=== PATIENT | male | born 1980 | race Caucasian/White ===

== ENCOUNTER → 2016-09-27 | Outpatient (CLI) | payer BC | LOC: KOH-I 07:59 | DX: M84.371A Stress fracture, right ankle, initial encounter for fracture (principal); S82.821A Torus fracture of lower end of right fibula, initial encounter for closed fracture; S82.51XA Displaced fracture of medial malleolus of right tibia, initial encounter for closed fracture | CPT/HCPCS: 73700 ==

== ENCOUNTER → 2021-09-02 | Outpatient (CLI) | payer BC | LOC: ECHO 12:27 → NM 14:30 | DX: R07.2 Precordial pain (principal); I35.1 Nonrheumatic aortic (valve) insufficiency | CPT/HCPCS: ECHO; 71046; 93306 ==

== ENCOUNTER 2021-11-12 20:35 | Inpatient (IN) | payer SELFPAY ==
[2021-11-12 21:26] LABS: HEMOGLOBIN 17.8 gm/dl (14.0-17.5); RED BLOOD COUNT 6.07 M/UL (4.20-5.50); WHITE BLOOD COUNT 11.4 K/UL (4.5-11.0)
[2021-11-12 21:51] LABS: BUN/CREATININE RATIO 20 (0-10)
[2021-11-13 05:02] LABS: BUN/CREATININE RATIO 18 (0-10)
[2021-11-13 13:09] LABS: HEMOGLOBIN 14.5 gm/dl (14.0-17.5); RED BLOOD COUNT 5.09 M/UL (4.20-5.50); WHITE BLOOD COUNT 6.1 K/UL (4.5-11.0)
--- NOTE | 2021-11-14 07:10 | NUR ---
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 SHE SAID IT WOULD BE A FAVER TO HER, IF I WOULD. SO I AGRED AND WENT TO ER TO DISCHARGE PATIENT. PATIENT HAD BEEN DISCHARGED BY DR. ATKINS AND WAS WANTING TO GO HOME. HE STATED HE HAD BEEN IN THE ER SINCE 1999 THE NIGHT BEFORE. I DISCOVERED THAT NO ONE IN THE ER KNEW HOW TO DISCHARGE A PATIENT FROM THE ER, EXCEPT TO DO A FULL ADMISSION AND DISCHARGE ON THE PATIENT. MR BIGGS REFUSED THE FULL ADMISSION PROCESS AND JUST WANTED TO GO HOME. HE ALSO STATED HE DIDN'T NEED TO SIGN OUT AMA, BECAUSE THE DOCTOR HAD SIGNED OFF ON HIM AND HE WAS DISCHARGED. I PUT TOGETHER SOME EDUCATION, AND PRINTED THE DISCHARGE PACKET IT WAS, HAD MR BIGGS SIGN HIS PART AND PUT A COPY IN THE CHART AND GAVE MR. BIGGS HIS COPY. BEV WAS INFORMED, WELL THE ER NURSE TENDING THE PATIENT. BEV SAID TO CHART MR BIGGS'S REFUSAL AND DO THE DISCHARGE.
== END 2021-11-13 18:18 | disposition home or self-care (01) | DRG 390 ==
LOC: ER1 20:35 → CDU 23:13
PROVIDERS: Student in an Organized Health Care Education/Training Program; ADMIT Surgery
DX: K56.609 Unspecified intestinal obstruction, unspecified as to partial versus complete obstruction (principal); Z90.49 Acquired absence of other specified parts of digestive tract; Z90.89 Acquired absence of other organs; Z20.822 Contact with and (suspected) exposure to COVID-19; Z83.3 Family history of diabetes mellitus; Z88.8 Allergy status to other drugs, medicaments and biological substances
CPT/HCPCS: 74018; 80048; 80053; 83605; 83690; 85025; 85027; 96374; 96375; 96376; 99285; J2250; J2270; J2405; J2550; J3480; J7030; Q9967; U0002